=== PATIENT | male | born 1950 | race African-American/Black ===

== ENCOUNTER 2016-10-23 15:01 | Emergency (ER) | payer OTHER, MEDICARE ==
[2016-10-23] MEDS ORDERED: HYDROMORPHONE HCL INJ/PF 2 MG/ML AMPULE IV ONE (15:09)
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
[2016-10-23 15:17] LABS: ABSOLUTE MONOCYTES (AUTO) 0.3 10^3/uL (0.1-1.4); ABSOLUTE NEUT (AUTO) 2.4 10^3/uL (1.7-8.2); BASOPHILS % (AUTO) 0.8 % (0-2); EOSINOPHILS % (AUTO) 0.9 % (0-6); HEMATOCRIT 39.6 % (37.9-51.0); HEMOGLOBIN 13.1 g/dL (13.5-17.0); HGB HCT DIFFERENCE -0.3; LYMPHOCYTES % (AUTO) 26.4 % (13-45); MEAN CORPUSCULAR HEMOGLOBIN 30.6 pg (27.0-33.4); MEAN CORPUSCULAR VOLUME 93 fl (80-97); MONOCYTES % (AUTO) 6.8 % (3-13); RED BLOOD COUNT 4.28 10^6/uL (4.35-5.55); RED CELL DISTRIBUTION WIDTH 13.6 % (11.5-14.0); SEGMENTED NEUTROPHILS % (AUTO) 65.1 % (42-78); WHITE BLOOD COUNT 3.7 10^3/uL (4.0-10.5)
[2016-10-23 15:32] LABS: ALANINE AMINOTRANSFERASE 63 U/L (21-72); ALBUMIN 4.4 g/dL (3.5-5.0); ALKALINE PHOSPHATASE 73 U/L (38-126); ANION GAP 13 (5-19); ASPARTATE AMINO TRANSFERASE 44 U/L (17-59); BILIRUBIN,TOTAL 0.5 mg/dL (0.2-1.3); BLOOD UREA NITROGEN 6 mg/dL (7-20); CALCIUM 9.6 mg/dL (8.4-10.2); CARBON DIOXIDE 25 mmol/L (22-30); CHLORIDE 107 mmol/L (98-107); CREATININE RESULT 0.61 mg/dL (0.52-1.25); GLUCOSE 93 mg/dL (75-110); POTASSIUM 3.7 mmol/L (3.6-5.0); SODIUM 144.9 mmol/L (137-145); TOTAL PROTEIN 7.5 g/dL (6.3-8.2)
[2016-10-23 17:58] VITALS: BP 138/93
== END 2016-10-23 17:40 | disposition home or self-care (01) ==
LOC: ER 15:01
DX: M54.5 Low back pain (principal); M54.2 Cervicalgia; R51 Headache; M79.1 Myalgia; V49.40XA Driver injured in collision with unspecified motor vehicles in traffic accident, initial encounter
CPT/HCPCS: 99284; 96374; 36415; 85025; 80053; 70450; 71260; 72125; 74177; J1170

== ENCOUNTER 2017-02-28 07:47 | Day surgery (SDC) | payer MEDICARE ==
[2017-02-28 08:35] LABS: PROTHROMBIN TIME 13.8 SEC (11.4-15.4)
[2017-02-28 08:36] LABS: PARTIAL THROMBOPLASTIN TIME 33.9 SEC (23.5-35.8)
--- NOTE | 2017-02-28 11:14 | RADIOLOGY REPORT (SQ) ---
EXAM DESCRIPTION: LUMBAR PUNCTURE; FLUORO/NEEDLE PLACEMENT/SPINE COMPLETED DATE/TIME: 02/28/2017 10:57 am REASON FOR STUDY: MS G35 MULTIPLE SCLEROSIS Z79.01 [employer] (CURRENT) USE OF ANTICOAGULANTS COMPARISON: CT abdomen pelvis 10/23/2016, MRI lumbar spine 05/01/2012 FLUOROSCOPY TIME: 0.2 minutes 1 digital radiographic images saved to PACS. TECHNIQUE: Fluoroscopic guided lumbar puncture. LIMITATIONS: None. PROCEDURE: After written consent and assessment were obtained, the patient was brought into the fluo roscopy room and placed prone on the table. The patient's lower back was prepped in a sterile fashio n and an entry site was selected under live fluoroscopic guidance. The entry site was anesthetized wi th 4.5 mL of 1% lidocaine. A 22 gauge spinal needle was advanced through the skin and into the thecal sac at the right paracentral L2-3 level. After approximately 9 ml was drained, the needle was remove d and a sterile bandage was placed of the site. Specimens were sent to the lab for testing. A fluor oscopic spot image was saved to PACS confirming level access. FINDINGS: Clear CSF opening pressure 10 cm of water, closing pressure 15 cm of water IMPRESSION: Lumbar puncture under fluoroscopy. No immediate complication. COMMENT: Patient medication list reviewed: Yes- Quality ID# [id number]:Eligible professional attests to doc umenting in the medical record they obtained, updated, or reviewed the patient's current medications. . Quality ID 145: Final reports for procedures using fluoroscopy that document radiation exposure shahida jarad, or exposure time and number of fluorographic images (if radiation exposure indices are not avail able) TECHNICAL DOCUMENTATION: JOB ID: [id number] [employer]- All Rights Reserved
--- NOTE | 2017-02-28 11:14 | RADIOLOGY REPORT (SQ) ---
EXAM DESCRIPTION: LUMBAR PUNCTURE; FLUORO/NEEDLE PLACEMENT/SPINE COMPLETED DATE/TIME: 02/28/2017 10:57 am REASON FOR STUDY: MS G35 MULTIPLE SCLEROSIS Z79.01 [employer]BRAS[employer] SAWYER (CURRENT) USE OF ANTICOAGULANTS COMPARISON: CT abdomen pelvis 10/23/2016, MRI lumbar spine 05/01/2012 FLUOROSCOPY TIME: 0.2 minutes 1 digital radiographic images saved to PACS. TECHNIQUE: Fluoroscopic guided lumbar puncture. LIMITATIONS: None. PROCEDURE: After written consent and assessment were obtained, the patient was brought into the fluo roscopy room and placed prone on the table. The patient's lower back was prepped in a sterile fashio n and an entry site was selected under live fluoroscopic guidance. The entry site was anesthetized wi th 4.5 mL of 1% lidocaine. A 22 gauge spinal needle was advanced through the skin and into the thecal sac at the right paracentral L2-3 level. After approximately 9 ml was drained, the needle was remove d and a sterile bandage was placed of the site. Specimens were sent to the lab for testing. A fluor oscopic spot image was saved to PACS confirming level access. FINDINGS: Clear CSF opening pressure 10 cm of water, closing pressure 15 cm of water IMPRESSION: Lumbar puncture under fluoroscopy. No immediate complication. COMMENT: Patient medication list reviewed: Yes- Quality ID# [id number]:Eligible professional attests to doc umenting in the medical record they obtained, updated, or reviewed the patient's current medications. . Quality ID 145: Final reports for procedures using fluoroscopy that document radiation exposure shahida jarad, or exposure time and number of fluorographic images (if radiation exposure indices are not avail able) TECHNICAL DOCUMENTATION: JOB ID: [id number] [employer]- All Rights Reserved
[2017-02-28 11:30] LABS: APPEARANCE ALL TUBES CLEAR; RBC DILUENT USED NONE USED; RBC DILUTION FACTOR 1; RBC SIDE 1 0; RBC SIDE 2 0; TOTAL RBC SQUARES COUNTED 225; WHITE BLOOD CELL,CSF 1 /uL (0-5)
[2017-02-28 11:37] LABS: GLUCOSE,CSF 69 mg/dL (40-70)
[2017-02-28 12:54] VITALS: BP 135/92
[2017-03-01 13:38] LABS: ALBUMIN CSF 21 mg/dL (11-48); ALBUMIN SERUM 4.9 g/dL (3.6-4.8); CSF IGG INDEX 0.5 (0.0-0.7); IGG SYNTHESIS RATE CSF -6.4 mg/day (-9.9 TO +3.3); IGG/ALBUMIN RATIO CSF 0.17 (0.00-0.25); IMMUNOGLOBULIN G CSF 3.6 mg/dL (0.0-8.6); IMMUNOGLOBULIN G SERUM 1820 mg/dL (700-1600)
[2017-03-01 14:06] LABS: CSF/SERUM ALBUMIN INDEX 4 (0-8)
== END 2017-02-28 13:02 | disposition home or self-care (01) ==
LOC: RAD 07:47
PROVIDERS: ATTEND Specialist
PROC: 009U3ZX Drainage of Spinal Canal, Percutaneous Approach, Diagnostic (ICD-10-PCS; principal; 2017-02-28)
DX: G35 Multiple sclerosis (principal); I10 Essential (primary) hypertension; R51 Headache; R41.3 Other amnesia; Z79.01 Long term (current) use of anticoagulants
CPT/HCPCS: 36415; 62270; 77003; 82784; 82945; 83916; 84157; 85610; 85730; 87070; 87205; 89050

== ENCOUNTER 2017-04-27 13:29 | Emergency (ER) | payer OTHER, MEDICARE ==
[2017-04-27 13:39] VITALS: BP 104/73
[2017-04-27] MEDS ORDERED: IBUPROFEN 800 MG TABLET PO ONE (14:12)
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
== END 2017-04-27 14:23 | disposition home or self-care (01) ==
LOC: ER 13:29
DX: S70.01XA Contusion of right hip, initial encounter (principal); V43.52XA Car driver injured in collision with other type car in traffic accident, initial encounter; R51 Headache; M54.2 Cervicalgia; I10 Essential (primary) hypertension
CPT/HCPCS: 99283

== ENCOUNTER 2017-04-28 08:57 | Emergency (ER) | payer OTHER, MEDICARE ==
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
[2017-04-28] MEDS ORDERED: LIDOCAINE 5% (700 MG) TRANSDERMAL ADH..PATCH TP ONE (10:16)
[2017-04-28 10:53] LABS: ABSOLUTE LYMPHOCYTES (AUTO) 0.7 10^3/uL (0.5-4.7); ABSOLUTE MONOCYTES (AUTO) 0.2 10^3/uL (0.1-1.4); ABSOLUTE NEUT (AUTO) 1.8 10^3/uL (1.7-8.2); BASOPHILS % (AUTO) 0.9 % (0-2); EOSINOPHILS % (AUTO) 1.6 % (0-6); HEMATOCRIT 38.1 % (37.9-51.0); HEMOGLOBIN 12.4 g/dL (13.5-17.0); HGB HCT DIFFERENCE -0.9; LYMPHOCYTES % (AUTO) 24.7 % (13-45); MEAN CORPUSCULAR HEMOGLOBIN 30.5 pg (27.0-33.4); MEAN CORPUSCULAR HGB CONC 32.5 g/dL (32.0-36.0); MEAN CORPUSCULAR VOLUME 94 fl (80-97); MONOCYTES % (AUTO) 8.1 % (3-13); RED BLOOD COUNT 4.06 10^6/uL (4.35-5.55); RED CELL DISTRIBUTION WIDTH 13.3 % (11.5-14.0); SEGMENTED NEUTROPHILS % (AUTO) 64.7 % (42-78); WHITE BLOOD COUNT 2.8 10^3/uL (4.0-10.5)
[2017-04-28 11:15] LABS: ANION GAP 9 (5-19); BLOOD UREA NITROGEN 6 mg/dL (7-20); CALCIUM 9.3 mg/dL (8.4-10.2); CARBON DIOXIDE 30 mmol/L (22-30); CHLORIDE 104 mmol/L (98-107); CREATINE KINASE 128 U/L (55-170); GLUCOSE 99 mg/dL (75-110); POTASSIUM 3.9 mmol/L (3.6-5.0); SODIUM 143.4 mmol/L (137-145)
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
[2017-04-28 12:25] VITALS: BP 143/98
--- NOTE | 2017-04-28 20:23 | EKG REPORT ---
SEVERITY:- ABNORMAL ECG - SINUS RHYTHM LEFT VENTRICULAR HYPERTROPHY NONSPECIFIC T ABNORMALITIES, INFERIOR LEADS : Confirmed by: Casey Iglesias MD 28-Apr-2017 20:22:34
== END 2017-04-28 12:24 | disposition home or self-care (01) ==
LOC: ER 08:57
DX: R07.9 Chest pain, unspecified (principal); M79.1 Myalgia; V89.2XXA Person injured in unspecified motor-vehicle accident, traffic, initial encounter; I10 Essential (primary) hypertension
CPT/HCPCS: 36415; 71020; 72110; 80048; 82550; 84484; 85025; 93005; 93010; 99284

== ENCOUNTER 2019-01-30 06:45 | Day surgery (SDC) | payer MEDICARE, OTHER ==
[~2019-01-30 06:45] MED LIST: KETOROLAC TROMETHAMINE 0.45% 4 DROP/0.4 ML DROPERETTE OD PRN
[2019-01-30] MEDS ORDERED: EPINEPHRINE INJ/PF 1 MG/1 ML AMPULE ONE (07:12)
[2019-01-30] MEDS ORDERED: LIDOCAINE 1%/PHENYLEPHRINE 1.5% 1 ML VIAL ONE (07:12)
[2019-01-30] MEDS ORDERED: CHONDR SU A NA/HYALUR INTRAOC KIT (SURGICARE) ONE (07:12)
[2019-01-30] MEDS: TROPICAMIDE 1% OPH SOLN 3 ML OD PRN ×3 (07:24→07:44)
[2019-01-30] MEDS: BESIFLOXACIN HCL 0.6% OPH SUSP 5 ML BOTTLE OD PRN ×4 (07:24→08:17)
[2019-01-30] MEDS: CYCLOPENTOLATE 0.2%/PHENYLEPHRINE 1% OPH SOLN 2 ML OD PRN ×3 (07:24→07:44)
[2019-01-30] MEDS ORDERED: MIDAZOLAM 2 MG/2 ML INJ ONE (07:25)
[2019-01-30] MEDS: TETRACAINE HCL 0.5% OPH SOLN 4 ML OD PRN ×3 (07:25→07:58)
[2019-01-30] MEDS: DORZOLAMIDE HCL 2%/TIMOLOL MALEAT 0.5% OPH SOLN 10 ML OD PRN ×2 (08:17)
--- NOTE | 2019-01-31 08:49 | [facility] OPERATIVE REPORT E ---
[facility] Operative Report NAME: MANISH MELVIN AGE: 68Y DATE OF SURGERY: 01/30/2019 ROOM: PREOPERATIVE DIAGNOSIS: CATARACT, RIGHT EYE. POSTOPERATIVE DIAGNOSIS: CATARACT, RIGHT EYE. OPERATION: Cataract extraction with insertion of an IOL of the right eye. SURGEON: BILLY FERRELL M.D. ANESTHESIA: Topical. PROCEDURE: After obtaining appropriate consent, the patient's right eye was prepped and draped in sterile fashion as well as the surgeon in a sterile manner and cataract surgery was started. First a paracentesis blade was used to make a side-port incision. Viscoelastic was used to inflate the anterior chamber. Next a 2.4 mm incision was made with a 2.4 mm blade, clear corneal temporally. A continuous capsulorrhexis was made using a cystotome and Utrata forceps. Following this hydrodissection was carried out to make the lens fully loose and mobile and it was rotated 90 degrees. Following this, a skaryo-rte-rzreuqf technique was used to phacoemulsify the lens with a CDE of 3.40. The remaining cortex was removed with irrigation/aspiration. Provisc was instilled into the capsular bag to inflate the bag. A SN60WF, 18.5 diopter lens was placed. The remaining viscoelastic material was removed with irrigation/aspiration. Following this, the incision was found to be watertight. Besivance was instilled into the eye and a protective shield was placed over the eye. The patient returned to the postoperative recovery in stable condition. DICTATING PHYSICIAN: BILLY FERRELL M.D. [id number] PHY#: [id number] ID: [id number] JOB#: [id number] ACCT: [id number] cc:BILLY FERRELL M.D. >
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
== END 2019-01-30 09:10 | disposition home or self-care (01) ==
LOC: SC 06:45
PROVIDERS: ATTEND Internal Medicine
DX: H25.813 Combined forms of age-related cataract, bilateral (principal); H57.03 Miosis; H40.1134 Primary open-angle glaucoma, bilateral, indeterminate stage; H04.123 Dry eye syndrome of bilateral lacrimal glands; H53.10 Unspecified subjective visual disturbances; I10 Essential (primary) hypertension; K21.9 Gastro-esophageal reflux disease without esophagitis; E78.00 Pure hypercholesterolemia, unspecified; Z87.891 Personal history of nicotine dependence; Z79.899 Other long term (current) drug therapy
CPT/HCPCS: 66984; V2632; J2250; J3490 ×2; J0171; J2370

== ENCOUNTER 2019-02-27 06:42 | Day surgery (SDC) | payer OTHER ==
[~2019-02-27 06:42] MED LIST changes: -KETOROLAC TROMETHAMINE 0.45% 4 DROP/0.4 ML DROPERETTE OD PRN; +KETOROLAC TROMETHAMINE 0.45% 4 DROP/0.4 ML DROPERETTE OS PRN
[2019-02-27] MEDS: TROPICAMIDE 1% OPH SOLN 3 ML OS PRN ×3 (06:50→07:10)
[2019-02-27] MEDS: TETRACAINE HCL 0.5% OPH SOLN 4 ML OS PRN ×3 (06:50→07:28)
[2019-02-27] MEDS: CYCLOPENTOLATE 0.2%/PHENYLEPHRINE 1% OPH SOLN 2 ML OS PRN ×3 (06:50→07:10)
[2019-02-27] MEDS: BESIFLOXACIN HCL 0.6% OPH SUSP 5 ML BOTTLE OS PRN ×4 (06:50→07:49)
[2019-02-27] MEDS ORDERED: FENTANYL CITRATE INJ/PF 100 MCG/2 ML AMPUL ONE (07:13)
[2019-02-27] MEDS ORDERED: MIDAZOLAM 2 MG/2 ML INJ ONE (07:13)
[2019-02-27] MEDS: EPINEPHRINE INJ/PF 1 MG/1 ML AMPULE ONE ×2 (07:38)
[2019-02-27] MEDS: LIDOCAINE 1%/PHENYLEPHRINE 1.5% 1 ML VIAL ONE ×2 (07:38)
[2019-02-27] MEDS: CHONDR SU A NA/HYALUR INTRAOC KIT (SURGICARE) ONE ×2 (07:38)
[2019-02-27] MEDS: DORZOLAMIDE HCL 2%/TIMOLOL MALEAT 0.5% OPH SOLN 10 ML OS PRN ×2 (07:49)
--- NOTE | 2019-02-28 11:55 | [facility] OPERATIVE REPORT E ---
[facility] Operative Report NAME: MANISH MELVIN AGE: 68Y DATE OF SURGERY: 02/27/2019 ROOM: PREOPERATIVE DIAGNOSIS: CATARACT, LEFT EYE. POSTOPERATIVE DIAGNOSIS: CATARACT, LEFT EYE. OPERATION: Cataract extraction with insertion of an IOL of the left eye. SURGEON: BILLY FERRELL M.D. ANESTHESIA: Topical. PROCEDURE: After obtaining appropriate consent, the patient's left eye was prepped and draped in sterile fashion as well as the surgeon in a sterile manner and cataract surgery was started. First a paracentesis blade was used to make a side-port incision. Viscoelastic was used to inflate the anterior chamber. Next a 2.4 mm incision was made with a 2.4 mm blade, clear corneal temporally. A continuous capsulorrhexis was made using a cystotome and Utrata forceps. Following this hydrodissection was carried out to make the lens fully loose and mobile and it was rotated 90 degrees. Following this, a ulbndu-rdk-gysfkef technique was used to phacoemulsify the lens with a CDE of 4.69. The remaining cortex was removed with irrigation/aspiration. Provisc was instilled into the capsular bag to inflate the bag. A SN60WF, 18.0 diopter lens was placed. The remaining viscoelastic material was removed with irrigation/aspiration. Following this, the incision was found to be watertight. Besivance was instilled into the eye and a protective shield was placed over the eye. The patient returned to the postoperative recovery in stable condition. DICTATING PHYSICIAN: BILLY FERRELL M.D. [id number] PHY#: [id number] ID: [id number] JOB#: [id number] ACCT: [id number] cc:BILLY FERRELL M.D. > MTDD
--- NOTE | 2019-02-28 12:00 | [facility] DISCHARGE SUMMARY E ---
[facility] Discharge Summary NAME: MANISH MELVIN AGE: 68Y ADMITTED: 02/27/2019 DISCHARGED: 02/27/2019 FINAL DIAGNOSIS: Cataract, left eye. HOSPITAL COURSE: This is a 68-year-old patient who underwent cataract extraction, left eye. He underwent surgery because he was having trouble seeing small print. He should be on a regular diet. No bending at the waist. No heavy lifting. He should use moxifloxacin, Ketorolac, and Predforte at 3 p.m. and 8 p.m. Sleep with a rigid shield. I will see him for a 1-day postoperative tomorrow. DICTATING PHYSICIAN: BILLY FERRELL M.D. [id number] PHY#: [id number] ID: [id number] JOB#: [id number] ACCT: [id number] cc:BILLY FERRELL M.D. >
== END 2019-02-27 08:21 | disposition home or self-care (01) ==
LOC: SC 06:42
PROVIDERS: ATTEND Internal Medicine
DX: H25.812 Combined forms of age-related cataract, left eye (principal); H57.03 Miosis; Z96.1 Presence of intraocular lens; H40.1134 Primary open-angle glaucoma, bilateral, indeterminate stage; I10 Essential (primary) hypertension
CPT/HCPCS: 66984; J2250; J3490 ×2; J0171; J3010; J2370; 142; V2632

== ENCOUNTER 2019-08-28 13:10 | Emergency (ER) | payer OTHER ==
[2019-08-28 13:50] LABS: ABSOLUTE EOSINOPHILS # (AUTO) 0.1 10^3/uL (0.0-0.6); ABSOLUTE LYMPHOCYTES (AUTO) 1.1 10^3/uL (0.5-4.7); ABSOLUTE MONOCYTES (AUTO) 0.3 10^3/uL (0.1-1.4); ABSOLUTE NEUT (AUTO) 1.7 10^3/uL (1.7-8.2); BASOPHILS % (AUTO) 1.3 % (0-2); EOSINOPHILS % (AUTO) 3.1 % (0-6); HEMATOCRIT 36.5 % (37.9-51.0); HEMOGLOBIN 11.7 g/dL (13.5-17.0); MEAN CORPUSCULAR HEMOGLOBIN 26.6 pg (27.0-33.4); MEAN CORPUSCULAR VOLUME 83 fl (80-97); MONOCYTES % (AUTO) 8.4 % (3-13); PLATELET COUNT 189 10^3/uL (150-450); RED BLOOD COUNT 4.39 10^6/uL (4.35-5.55); RED CELL DISTRIBUTION WIDTH 16.6 % (11.5-14.0); SEGMENTED NEUTROPHILS % (AUTO) 53.2 % (42-78); TOTAL CELLS COUNTED % (AUTO) 100 %; WHITE BLOOD COUNT 3.2 10^3/uL (4.0-10.5)
[2019-08-28 14:03] LABS: ALBUMIN 4.3 g/dL (3.5-5.0); ALKALINE PHOSPHATASE 73 U/L (38-126); ANION GAP 7 (5-19); ASPARTATE AMINO TRANSFERASE 26 U/L (17-59); BILIRUBIN,DIRECT 0.3 mg/dL (0.0-0.4); BILIRUBIN,TOTAL 0.4 mg/dL (0.2-1.3); BLOOD UREA NITROGEN 4 mg/dL (7-20); CALCIUM 9.3 mg/dL (8.4-10.2); CARBON DIOXIDE 30 mmol/L (22-30); CHLORIDE 106 mmol/L (98-107); CREATINE KINASE 265 U/L (55-170); GLUCOSE 93 mg/dL (75-110); POTASSIUM 3.7 mmol/L (3.6-5.0); TOTAL PROTEIN 7.6 g/dL (6.3-8.2)
--- NOTE | 2019-08-28 14:14 | RADIOLOGY REPORT (SQ) ---
EXAM DESCRIPTION: CHEST 2 VIEWS COMPLETED DATE/TIME: 08/28/2019 1:58 pm REASON FOR STUDY: cp COMPARISON: 04/28/2017 EXAM PARAMETERS: NUMBER OF VIEWS: two views TECHNIQUE: Digital Frontal and Lateral radiographic views of the chest acquired. RADIATION DOSE: NA LIMITATIONS: none FINDINGS: LUNGS AND PLEURA: No opacities, masses or pneumothorax. No pleural effusion. MEDIASTINUM AND HILAR STRUCTURES: No masses or contour abnormalities. HEART AND VASCULAR STRUCTURES: Heart normal size. No evidence for failure. BONES: No acute findings. HARDWARE: None in the chest. OTHER: No other significant finding. IMPRESSION: NO ACUTE RADIOGRAPHIC FINDING IN THE CHEST. TECHNICAL DOCUMENTATION: JOB ID: [id number] [employer]- All Rights Reserved Reading location - IP/workstation name: [email or web address]
[2019-08-28 14:16] LABS: TROPONIN I < 0.012 ng/mL
--- NOTE | 2019-08-28 15:17 | ER Document Report ---
ED Cardiac - General Chief Complaint: Chest Pain Stated Complaint: CHEST PAIN Time Seen by Provider: 08/28/19 15:15 Primary Care Provider: WILLIE MOTTA MD [Primary Care Provider] - Follow up tomorrow TRAVEL OUTSIDE OF THE [place] IN LAST 30 DAYS: No - HPI Notes: 68-year-old male to the emergency department with complaints of chest pain that has been going on for the past 2 weeks. It is episodic in nature. He states that every time he gets up and moves around he has stabbing chest pain to the center of his chest that radiates down his right and left arm with associated shortness of breath and diaphoresis. He states that when he sits back down and rests he feels better. He states that he is never had a heart attack. He thinks that he had an MRI of his heart several years ago but has never had a stress test or cath. He states that he has not had any leg swelling. He has no history of congestive heart failure. He does have a history of hypertension and hyperlipidemia. He is a former smoker. He states that he was adopted so he does not know his past family history regarding cardiac disease. He was sent here today by the [place] for further evaluation of his chest pain. He states that he initially thought that the pain was a result from the "change in weather". He admits that he has a slight cough with it but denies any production or fever. He did receive aspirin and nitroglycerin from medics and states that he feels better. - Related Data Allergies/Adverse Reactions: No Known Allergies Allergy (Verified 08/28/19 14:17) Past Medical History - General Information source: Patient - Social History Smoking Status: Former Smoker Chew tobacco use (# tins/day): No Frequency of alcohol use: None Drug Abuse: None Family History: Other - Unknown as patient is adopted Patient has suicidal ideation: No Patient has homicidal ideation: No - Past Medical History Cardiac Medical History: Reports: Hx Hypertension Denies: Hx Coronary Artery Disease, Hx Heart Attack Pulmonary Medical History: Reports: Hx Pneumonia Denies: Hx Asthma, Hx Bronchitis, Hx COPD Neurological Medical History: Denies: Hx Cerebrovascular Accident. Comment Only: Hx Seizures - "SPELLS" - SEEING DR. ORTEGA, [facility] 2017 Renal/ Medical History: Denies: Hx Peritoneal Dialysis GI Medical History: Reports: Hx Hepatitis - HEP C CURED 2016. Denies: Hx Hiatal Hernia, Hx Ulcer Musculoskeletal Medical History: Reports Hx Arthritis, Reports Hx Musculoskeletal Deformity Infectious Medical History: Reports: Hx Hepatitis - HEP C CURED 2016 Past Surgical History: Reports: Hx Orthopedic Surgery - LUMBAR FUSION. Denies: Hx Open Heart Surgery, Hx Pacemaker - Immunizations Hx Diphtheria, Pertussis, Tetanus Vaccination: Yes Review of Systems - Review of Systems Constitutional: Diaphoresis. denies: Fever EENT: No symptoms reported Cardiovascular: Chest pain, Palpitations. denies: Orthopnea, Dizziness, Lightheaded, Edema Respiratory: Cough, Short of breath Gastrointestinal: Nausea. denies: Abdominal pain, Diarrhea, Vomiting Genitourinary: No symptoms reported Male Genitourinary: No symptoms reported Musculoskeletal: No symptoms reported Skin: No symptoms reported Hematologic/Lymphatic: No symptoms reported Neurological/Psychological: No symptoms reported -: Yes All other systems reviewed and negative Physical Exam - Vital signs Vitals: Resp Pulse Ox 11 L 99 08/28/19 13:40 08/28/19 13:40 Selected Entries 08/28/19 08/28/19 13:42 14:01 Temperature 98.3 F Heart Rate ( 54 Monitors) Respiratory 16 Rate Blood Pressure 180/105 H Interpretation: Normal - General General appearance: Appears well, Alert In distress: None - HEENT Head: Normocephalic, Atraumatic Eyes: Normal Pupils: PERRL - Respiratory Respiratory status: No respiratory distress. No: Tachypnea Chest status: Nontender. No: Accessory muscle use Breath sounds: Normal. No: Rales, Rhonchi, Stridor, Wheezing Chest palpation: Normal - Cardiovascular Rhythm: Regular Heart sounds: Normal auscultation Murmur: No Notes: No pitting edema. No unilateral leg swelling Chest is nontender to palpation - Abdominal Inspection: Normal Distension: No distension Bowel sounds: Normal Tenderness: Nontender Organomegaly: No organomegaly - Back Back: Normal, Nontender - Extremities General upper extremity: Normal inspection, Nontender, Normal color, Normal ROM, Normal temperature General lower extremity: Normal inspection, Nontender, Normal color, Normal ROM, Normal temperature, Normal weight bearing. No: Jimena's sign - Neurological Neuro grossly intact: Yes Cognition: Normal Orientation: AAOx4 Fifi Coma Scale Eye Opening: Spontaneous Fifi Coma Scale Verbal: Oriented [place] Coma Scale Motor: Obeys Commands [place] Coma Scale Total: 15 Speech: Normal Cranial nerves: Normal Cerebellar coordination: Normal Motor strength normal: LUE, RUE, LLE, RLE Additional motor exam normals: Equal screen printer. No: Pronator drift Sensory: Normal - Psychological Associated symptoms: Normal affect, Normal mood - Skin Skin Temperature: Warm Skin Moisture: Dry Skin Color: Normal Course - Re-evaluation Re-evalutation: 08/28/19 Impression: Chest pain. It is episodic and seems to be getting worse with exertion with associated diaphoresis and radiation into the arms with shortness of breath. Patient's story is concerning and I did offer admission for further evaluation of chest pain. He has T wave inversions inferiorly on his EKG and I do not have a prior to compare it. 2 EKGs were done in the emergency department and there is no changing of the inferior lead T wave inversion. There is also no progression of ST depression or elevation. When I offered admission for the patient for further evaluation of his chest pain he states that he cannot stay. He states that he needs to get home and attend to things that are going on at his house. He is aware that his chest pain could have a serious etiology and that it could progress to more concerning cardiac damage and possibly . He states that despite that he would still like to go home. I have encouraged him to return at any time and to call the medics of his chest pain worsens. I will have him sign an AGAINST MEDICAL ADVICE form and he understands the risk that he is taking by leaving the emergency department without further evaluation for his chest pain. Of note he has a heart score of 6. Did discuss this patient with Dr. Randolph and she initially agreed with plan for admission. Made her aware that the patient refused admission and aware of AMA. - Vital Signs Vital signs: Temp Pulse Resp BP Pulse Ox 98.3 F 53 L 13 180/104 H 99 08/28/19 13:42 08/28/19 13:42 08/28/19 16:00 08/28/19 15:01 08/28/19 13:40 - Laboratory Result Diagrams: 08/28/19 12:46 08/28/19 12:46 Laboratory results interpreted by me: 08/28/19 08/28/19 12:46 12:46 WBC 3.2 L Hgb 11.7 L Hct 36.5 L MCH 26.6 L RDW 16.6 H BUN 4 L Creatine Kinase 265 H - Diagnostic Test Radiology reviewed: Image reviewed, Reports reviewed - EKG Interpretation by Me Additional EKG results interpreted by me: 08/28/19 EKG #1: rate 63, rhythm: sinus, interpretation: NO STEMI. + LVH, Inferior t wave inversions. There is no prior for comparison. EKG #2: rate 57, rhythm: sinus, interpretations: No STEMI, + LVH, inferior t wave inversions persist. Discharge - Discharge Clinical Impression: Chest pain, Hypertension Condition: Stable Disposition: AGAINST MEDICAL ADVICE Instructions: Chest Pain of Unclear Cause ([facility]) Additional Instructions: YOU HAVE DECIDED TO LEAVE AGAINST MEDICAL ADVICE. YOU WERE OFFERED ADMISSION FOR FURTHER EVALUATION OF YOUR CHEST PAIN. YOU UNDERSTAND THAT BY LEAVING, YOU RISK PROGRESSION OF YOUR CHEST PAIN, CARDIAC INJURY, HOSPITALIZATION, OR . YOU MAY RETURN AT ANY TIME TO SEEK FURTHER TREATMENT FOR YOUR CHEST PAIN. FOLLOW UP WITH PRIMARY CARE TOMORROW. TAKE A DAILY ASPIRIN. Prescriptions: Aspirin [Aspirin 325 mg Tablet] 325 mg PO DAILY #30 tablet Referrals: WILLIE MOTTA MD [Primary Care Provider] - Follow up tomorrow
[2019-08-28 17:25] VITALS: BP 159/96
[2019-08-28 17:47] LABS: URINE AMPHETAMINES SCREEN NEGATIVE; URINE BARBITURATES SCREEN NEGATIVE; URINE BENZODIAZEPINES SCREEN NEGATIVE; URINE COCAINE SCREEN NEGATIVE; URINE MARIJUANA (THC) SCREEN NEGATIVE; URINE METHADONE SCREEN NEGATIVE; URINE PHENCYCLIDINE SCREEN NEGATIVE
--- NOTE | 2019-08-28 22:00 | EKG REPORT ---
SEVERITY:- ABNORMAL ECG - SINUS RHYTHM LEFT VENTRICULAR HYPERTROPHY NONSPECIFIC T ABNORMALITIES, INFERIOR LEADS ANTERIOR ST ELEVATION, PROBABLY DUE TO LVH : Confirmed by: Lyle Whitehead 28-Aug-2019 21:59:52
--- NOTE | 2019-08-29 07:42 | EKG REPORT ---
SEVERITY:- ABNORMAL ECG - SINUS RHYTHM LEFT VENTRICULAR HYPERTROPHY ABNORMAL T, CONSIDER ISCHEMIA, INFERIOR LEADS : Confirmed on behalf of: Lyle Whitehead 29-Aug-2019 07:41:59
== END 2019-08-28 17:44 | disposition left against medical advice (07) ==
LOC: ER 13:10
DX: R07.9 Chest pain, unspecified (principal); I10 Essential (primary) hypertension; R06.02 Shortness of breath; R61 Generalized hyperhidrosis; E78.5 Hyperlipidemia, unspecified; Z98.1 Arthrodesis status; Z86.19 Personal history of other infectious and parasitic diseases
CPT/HCPCS: 36415; 71046; 80053; 80307; 82550; 82553; 84484; 85025; 93005; 93010; 99285

== ENCOUNTER → 2020-05-14 | Outpatient (CLI) | payer OTHER ==
--- NOTE | 2020-05-14 12:59 | RADIOLOGY REPORT (SQ) ---
EXAM DESCRIPTION: MRA HEAD WITHOUT IMAGES COMPLETED DATE/TIME: 05/14/2020 11:31 am REASON FOR STUDY: H53.19 OTHER SUBJECTIVE VISUAL DISTURBANCES H53.19 OTHER SUBJECTIVE VISUAL DISTUR BANCES COMPARISON: None. TECHNIQUE: Axial 3-D eyeh-wu-acjcyr acquisition imaging performed through the brain in the area of t he [place]. Images reformatted using 3-D MIPS. LIMITATIONS: None. FINDINGS: SOURCE IMAGES: No unexpected findings on source images. No large masses. 3-D MIP: No aneurysm. No occlusions. No significant stenosis. OTHER: No other significant finding. IMPRESSION: NORMAL MRA OF THE [place]. TECHNICAL DOCUMENTATION: JOB ID: [id number] 2010 [employer]- All Rights Reserved Reading location - IP/workstation name: [email or web address]
== END ==
LOC: RAD 10:20
PROVIDERS: ATTEND Internal Medicine
DX: H53.19 Other subjective visual disturbances (principal)
CPT/HCPCS: 70544